=== PATIENT | female | born 1935 | race Caucasian/White ===

== ENCOUNTER 2023-09-03 11:51 | Inpatient (IN) | payer OTHER, MEDICAID ==
[2023-09-03 13:13] LABS: Actual Bicarbonate (HCO3v) 28.5 mEq/L (22-28); Base Excess 4.5 mEq/L (-2 - +2); Calcium, Ionized (venous) 1.56 mmol/L (1.16-1.32); Chloride (VBG) 101 mmol/L (98-106); Hematocrit-VBG 46 % (36.0-47.0); Hemoglobin (Hb) 15.6 g/dL (11.7-16.1); Potassium (VBG) 3.94 mmol/L (3.70-5.30); Puncture Site Other Site; Sodium 138 mmol/L (133-146); pH (venous) 7.471 (7.32-7.43)
[2023-09-03 13:18] LABS: Bilirubin Neg (Negative); Blood, Urine 250 (Negative); Clarity Slightly Cloudy (Clear); Glucose, Urine (Dipstick) Normal (Negative); Ketone, Urine Negative (Negative); Leukocyte 100 (Negative); Nitrite Negative (Negative); Protein, Urine (Dipstick) 30 mg/dl (Neg-Trace); Urobilinogen Normal mg/dL (Less than 2)
[2023-09-03 13:21] LABS: #Eosinphils 0.1 10x3/uL (0.0-0.5); #Monocytes 0.6 10x3/uL (0.0-1.1); #Neutrophils 5.6 10x3/uL (1.5-8.4); %Basophils 0.2 % (0.0-2.0); %Eosinophils 0.6 % (0.0-6.0); %Lymphocytes 22.5 % (18.0-47.0); Hemoglobin 14.6 g/dL (12.0-15.5); Mean Corpuscular Hemoglobin 30.7 pg (27.0-33.0); Mean Corpuscular Volume 90.3 fl (81.6-98.3); RBC Distribution Width 14.1 % (11.5-14.5); Red Blood Cell (RBC) Count 4.76 10x6/uL (3.90-5.03); White Blood Cell (WBC) Count 8.1 10x3/uL (3.5-10.5)
[2023-09-03 13:27] LABS: Platelet Count 192 10x3/uL (150-450)
[2023-09-03 13:29] LABS: ALT (SGPT) 70 U/L (8-55); AST (SGOT) 29 U/L (5-34); Alkaline Phosphatase 119 U/L (40-110); Anion Gap 16 mmol/L (10-20); BUN (Urea Nitrogen) 13 mg/dL (9.8-20.1); Bilirubin, Total 1.3 mg/dL (0.2-1.2); Calc. Creatinine Clearance 0 mL/min (70-130); Carbon Dioxide 26 mmol/L (23-31); Chloride 100 mmol/L (98-107); Estimated GFR 73; Globulin 2.4 g/dL (2.4-3.5); Glucose 163 mg/dL (83-110); Lipase 33 U/L (8-78); Protein, Total 6.4 g/dL (5.8-8.1); Sodium 138 mmol/L (136-145)
[2023-09-03 13:31] LABS: Calcium 13.8 mg/dL (7.8-10.44)
[2023-09-03 13:35] LABS: Troponin I 0.288 ng/mL (< 0.028)
[2023-09-03 13:41] LABS: Bacteria/HPF 2+ HPF (None Seen); CAUTI Indications for Culture Alt mental st,lethar; Calcium Oxalate Crystals 1+ HPF (None Seen); Squamous Epithelial 0-3 HPF (0-3)
[2023-09-03 13:44] LABS: Urine Culture Reflex No No
[2023-09-03] MEDS ORDERED: Ondansetron PF 4 MG/2 ML Vial IVP PRN (13:57)
[2023-09-03] MEDS ORDERED: Acetaminophen 325 MG TAB PO PRN (13:57)
[2023-09-03] MEDS ORDERED: cefTRIAXone (ROCEPHIN) 1 GM VIAL ONE (13:59)
[2023-09-03] MEDS ORDERED: Sodium Chloride 0.9% 500 ML IV SCH ×3 (14:00→15:30)
[2023-09-03] MEDS ORDERED: Metoprolol Tartrate 25 MG TAB PO PRN (14:01)
[2023-09-03 15:39] VITALS: BMI 22.4
[2023-09-03] MEDS: Sodium Chloride 0.9% 1,000 ML IV SCH (15:43)
[2023-09-03] MEDS ORDERED: FLU VACC QS2023(65UP)/MF59C/PF 60 MCG/0.5 ML SYRINGE IM ONE (16:00)
[2023-09-03 17:25] LABS: Troponin I 0.269 ng/mL (< 0.028)
[2023-09-03 20:22] LABS: Troponin I 0.286 ng/mL (< 0.028)
[2023-09-03] MEDS: levETIRAcetam 500 MG TAB PO SCH (20:59)
[2023-09-03] MEDS: Atorvastatin Calcium 40 MG TAB PO SCH (20:59)
[2023-09-04] MEDS: Sodium Chloride 0.9% 1,000 ML IV SCH (01:17)
[2023-09-04] MEDS ORDERED: Lorazepam 2 MG/ML VIAL SLOW IVP SCH (04:15)
[2023-09-04 06:19] LABS: #Monocytes 0.7 10x3/uL (0.0-1.1); #Neutrophils 5.1 10x3/uL (1.5-8.4); %Basophils 0.1 % (0.0-2.0); %Eosinophils 0.4 % (0.0-6.0); %Lymphocytes 18.9 % (18.0-47.0); %Monocytes 9.1 % (0.0-10.0); %Neutrophils 70.9 % (40.0-75.0); Hematocrit 37.5 % (34.9-44.5); Hemoglobin 12.6 g/dL (12.0-15.5); Mean Corpuscular HGB CONC 33.6 g/dL (32.0-36.0); Mean Corpuscular Hemoglobin 30.1 pg (27.0-33.0); Mean Corpuscular Volume 89.5 fl (81.6-98.3); Mean Platelet Volume 13.5 fl (7.4-10.4); Platelet Count 190 10x3/uL (150-450); RBC Distribution Width 13.9 % (11.5-14.5); Red Blood Cell (RBC) Count 4.19 10x6/uL (3.90-5.03); White Blood Cell (WBC) Count 7.2 10x3/uL (3.5-10.5)
[2023-09-04 06:22] LABS: Anion Gap 14 mmol/L (10-20); BUN (Urea Nitrogen) 12 mg/dL (9.8-20.1); Calc. Creatinine Clearance 42 mL/min (70-130); Carbon Dioxide 24 mmol/L (23-31); Chloride 111 mmol/L (98-107); Estimated GFR 59; Glucose 145 mg/dL (83-110); Potassium 3.1 mmol/L (3.5-5.1); Sodium 146 mmol/L (136-145)
[2023-09-04] MEDS ORDERED: Potassium Chloride 20 MEQ in Premix 1 BAG IVPB SCH (09:00)
[2023-09-04 09:49] LABS: Magnesium 1.8 mg/dL (1.6-2.6)
[2023-09-04] MEDS: Aspirin 81 mg Enteric Coated Tablet PO SCH ×2 (10:03→10:25)
[2023-09-04] MEDS: levETIRAcetam 500 MG TAB PO SCH ×3 (10:04→22:05)
[2023-09-04] MEDS: Potassium Chloride 20 MEQ in Lactated Ringer's 1,000 ML IV SCH ×2 (11:37→22:03)
[2023-09-04] MEDS ORDERED: Magnesium 2 GM/50 ML(in water) 2 GM in Premix 1 BAG IVPB SCH (14:00)
[2023-09-04 15:08] LABS: Reference Lab Name LABCORP
[2023-09-04] MEDS: Atorvastatin Calcium 40 MG TAB PO SCH (22:05)
[2023-09-04] MEDS: hydrALAZINE 20 MG/ML VIAL SLOW IVP PRN (22:14)
[2023-09-04] MEDS ORDERED: dilTIAZem 25 MG/5 ML VIAL SLOW IVP SCH (22:30)
[2023-09-05 05:12] LABS: #Neutrophils 8.6 10x3/uL (1.5-8.4); %Basophils 0.4 % (0.0-2.0); %Eosinophils 0.1 % (0.0-6.0); %Lymphocytes 10.7 % (18.0-47.0); %Monocytes 9.6 % (0.0-10.0); %Neutrophils 78.7 % (40.0-75.0); Hematocrit 39.5 % (34.9-44.5); Mean Corpuscular HGB CONC 32.9 g/dL (32.0-36.0); Mean Corpuscular Hemoglobin 29.9 pg (27.0-33.0); Mean Corpuscular Volume 90.8 fl (81.6-98.3); Mean Platelet Volume 12.9 fl (7.4-10.4); Platelet Count 152 10x3/uL (150-450); RBC Distribution Width 14.3 % (11.5-14.5); Red Blood Cell (RBC) Count 4.35 10x6/uL (3.90-5.03); White Blood Cell (WBC) Count 10.9 10x3/uL (3.5-10.5)
[2023-09-05 05:29] LABS: Anion Gap 12 mmol/L (10-20); BUN (Urea Nitrogen) 13 mg/dL (9.8-20.1); Calc. Creatinine Clearance 41 mL/min (70-130); Carbon Dioxide 25 mmol/L (23-31); Chloride 114 mmol/L (98-107); Estimated GFR 57; Glucose 139 mg/dL (83-110); Potassium 3.3 mmol/L (3.5-5.1); Sodium 148 mmol/L (136-145)
[2023-09-05] MEDS: Potassium Chloride 20 MEQ in Lactated Ringer's 1,000 ML IV SCH ×2 (06:05→18:34)
[2023-09-05] MEDS ORDERED: Calcitonin,Salmon,Synthetic 400 UNITS/2 ML SC SCH (06:15)
[2023-09-05] MEDS ORDERED: ADMIXTURE FEE SC SCH (06:30)
[2023-09-05] MEDS ORDERED: CALCITONIN SALMON SYNTHETIC SC SCH (06:30)
[2023-09-05] MEDS ORDERED: Zoledronic Acid 4 MG in Sodium Chloride 0.9% 100 ML IVPB SCH (08:00)
[2023-09-05] MEDS ORDERED: Carvedilol 6.25 MG TAB PO SCH (08:30)
[2023-09-05] MEDS: hydrALAZINE 20 MG/ML VIAL SLOW IVP PRN (08:34)
[2023-09-05] MEDS: levETIRAcetam 500 MG TAB PO SCH ×2 (08:40→22:00)
[2023-09-05] MEDS: Aspirin 81 mg Enteric Coated Tablet PO SCH (08:40)
[2023-09-05 08:52] LABS: Magnesium 2.2 mg/dL (1.6-2.6)
[2023-09-05] MEDS: Potassium Chloride 20 MEQ in Premix 1 BAG IVPB SCH ×2 (09:00→10:00)
[2023-09-05] MEDS ORDERED: Cinacalcet HCl 30 MG TAB PO SCH (09:15)
[2023-09-05 13:34] LABS: Anion Gap 11 mmol/L (10-20); BUN (Urea Nitrogen) 15 mg/dL (9.8-20.1); Calc. Creatinine Clearance 36 mL/min (70-130); Carbon Dioxide 27 mmol/L (23-31); Chloride 114 mmol/L (98-107); Estimated GFR 49; Glucose 181 mg/dL (83-110); Sodium 149 mmol/L (136-145)
[2023-09-05 13:45] LABS: Calcium 14.3 mg/dL (7.8-10.44)
[2023-09-05] MEDS ORDERED: Potassium Chloride 20 MEQ in Premix 1 BAG IVPB SCH (16:00)
[2023-09-05] MEDS: D5 1/2 NS w/20 mEq KCL 1,000 ML IV SCH ×2 (16:28→22:03)
[2023-09-05] MEDS: Cinacalcet HCl 30 MG TAB PO SCH (16:29)
[2023-09-05] MEDS: Carvedilol 6.25 MG TAB PO SCH (18:33)
[2023-09-05] MEDS: Atorvastatin Calcium 40 MG TAB PO SCH (22:00)
[2023-09-06 05:01] LABS: Anion Gap 13 mmol/L (10-20); BUN (Urea Nitrogen) 21 mg/dL (9.8-20.1); Calc. Creatinine Clearance 28 mL/min (70-130); Carbon Dioxide 21 mmol/L (23-31); Chloride 118 mmol/L (98-107); Estimated GFR 36; Glucose 183 mg/dL (83-110); Potassium 3.2 mmol/L (3.5-5.1); Sodium 149 mmol/L (136-145)
[2023-09-06 05:06] LABS: #Monocytes 0.9 10x3/uL (0.0-1.1); #Neutrophils 9.1 10x3/uL (1.5-8.4); %Basophils 0.2 % (0.0-2.0); %Eosinophils 0.1 % (0.0-6.0); %Lymphocytes 7.8 % (18.0-47.0); %Monocytes 8.5 % (0.0-10.0); %Neutrophils 82.9 % (40.0-75.0); Calcium 13.7 mg/dL (7.8-10.44); Hematocrit 35.2 % (34.9-44.5); Hemoglobin 11.9 g/dL (12.0-15.5); Mean Corpuscular HGB CONC 33.8 g/dL (32.0-36.0); Mean Corpuscular Hemoglobin 30.5 pg (27.0-33.0); Mean Corpuscular Volume 90.3 fl (81.6-98.3); Mean Platelet Volume 13.9 fl (7.4-10.4); Platelet Count 172 10x3/uL (150-450); RBC Distribution Width 14.6 % (11.5-14.5)
[2023-09-06] MEDS: levETIRAcetam 500 MG TAB PO SCH ×2 (08:27→21:11)
[2023-09-06] MEDS: Carvedilol 6.25 MG TAB PO SCH ×3 (08:27→18:09)
[2023-09-06] MEDS: Aspirin 81 mg Enteric Coated Tablet PO SCH (08:27)
[2023-09-06] MEDS: Cinacalcet HCl 30 MG TAB PO SCH ×2 (08:31→17:49)
[2023-09-06] MEDS: Dextrose 5% w/ 20 mEq KCl 1,000 ML IV SCH ×2 (09:58→21:10)
[2023-09-06] MEDS: hydrALAZINE 20 MG/ML VIAL SLOW IVP PRN (13:45)
[2023-09-06] MEDS: Atorvastatin Calcium 40 MG TAB PO SCH (21:11)
[2023-09-07 03:59] LABS: #Monocytes 0.8 10x3/uL (0.0-1.1); %Basophils 0.1 % (0.0-2.0); %Eosinophils 0.3 % (0.0-6.0); %Lymphocytes 13.7 % (18.0-47.0); %Monocytes 8.5 % (0.0-10.0); %Neutrophils 77.2 % (40.0-75.0); Hematocrit 32.6 % (34.9-44.5); Hemoglobin 10.9 g/dL (12.0-15.5); Mean Corpuscular HGB CONC 33.4 g/dL (32.0-36.0); Mean Corpuscular Hemoglobin 30.4 pg (27.0-33.0); Mean Corpuscular Volume 91.1 fl (81.6-98.3); Mean Platelet Volume 13.5 fl (7.4-10.4); Platelet Count 153 10x3/uL (150-450); RBC Distribution Width 14.7 % (11.5-14.5); Red Blood Cell (RBC) Count 3.58 10x6/uL (3.90-5.03); White Blood Cell (WBC) Count 9.1 10x3/uL (3.5-10.5)
[2023-09-07 04:02] LABS: Anion Gap 11 mmol/L (10-20); BUN (Urea Nitrogen) 24 mg/dL (9.8-20.1); Calc. Creatinine Clearance 31 mL/min (70-130); Calcium 12.4 mg/dL (7.8-10.44); Carbon Dioxide 21 mmol/L (23-31); Chloride 114 mmol/L (98-107); Estimated GFR 40; Glucose 161 mg/dL (83-110); Potassium 3.1 mmol/L (3.5-5.1); Sodium 143 mmol/L (136-145)
[2023-09-07] MEDS: Cinacalcet HCl 30 MG TAB PO SCH ×2 (08:35→18:05)
[2023-09-07] MEDS: Carvedilol 6.25 MG TAB PO SCH ×2 (08:35→18:04)
[2023-09-07] MEDS: levETIRAcetam 500 MG TAB PO SCH ×2 (08:35→20:18)
[2023-09-07] MEDS: Aspirin 81 mg Enteric Coated Tablet PO SCH ×2 (08:35→08:36)
[2023-09-07] MEDS ORDERED: Potassium Chloride 20 MEQ/100 ML PREMIX BAG ONE (09:42)
[2023-09-07] MEDS: Potassium Chloride 20 MEQ in Premix 1 BAG IVPB SCH ×2 (10:04→12:15)
[2023-09-07] MEDS: Dextrose 5% w/ 20 mEq KCl 1,000 ML IV SCH ×2 (10:05→23:56)
[2023-09-07] MEDS: Atorvastatin Calcium 40 MG TAB PO SCH (20:19)
[2023-09-08 03:47] LABS: Anion Gap 10 mmol/L (10-20); BUN (Urea Nitrogen) 22 mg/dL (9.8-20.1); Calc. Creatinine Clearance 36 mL/min (70-130); Calcium 11.7 mg/dL (7.8-10.44); Carbon Dioxide 19 mmol/L (23-31); Chloride 111 mmol/L (98-107); Estimated GFR 49; Glucose 179 mg/dL (83-110); Potassium 3.5 mmol/L (3.5-5.1); Sodium 136 mmol/L (136-145)
[2023-09-08 03:53] LABS: #Eosinphils 0.1 10x3/uL (0.0-0.5); #Monocytes 0.7 10x3/uL (0.0-1.1); #Neutrophils 5.4 10x3/uL (1.5-8.4); %Basophils 0.1 % (0.0-2.0); %Monocytes 8.8 % (0.0-10.0); %Neutrophils 73.7 % (40.0-75.0); Hematocrit 32.5 % (34.9-44.5); Hemoglobin 10.8 g/dL (12.0-15.5); Mean Corpuscular HGB CONC 33.2 g/dL (32.0-36.0); Mean Corpuscular Hemoglobin 30.5 pg (27.0-33.0); Mean Corpuscular Volume 91.8 fl (81.6-98.3); Mean Platelet Volume 13.7 fl (7.4-10.4); Platelet Count 150 10x3/uL (150-450); RBC Distribution Width 14.6 % (11.5-14.5); Red Blood Cell (RBC) Count 3.54 10x6/uL (3.90-5.03); White Blood Cell (WBC) Count 7.4 10x3/uL (3.5-10.5)
[2023-09-08] MEDS: Carvedilol 6.25 MG TAB PO SCH (08:00)
[2023-09-08] MEDS: levETIRAcetam 500 MG TAB PO SCH (09:01)
[2023-09-08] MEDS: Aspirin 81 mg Enteric Coated Tablet PO SCH (09:01)
[2023-09-08] MEDS: Cinacalcet HCl 30 MG TAB PO SCH (09:02)
[2023-09-08 13:21] VITALS: BP 182/80; TEMP 97.4
== END 2023-09-08 11:20 | DRG 640 ==
LOC: CSHERS 11:51 → CSHTELE 13:54
PROVIDERS: ADMIT Internal Medicine; ATTEND Internal Medicine
PROC: 0T9B70Z Drainage of Bladder with Drainage Device, Via Natural or Artificial Opening (ICD-10-PCS; principal; 2023-09-03)
PROC: 4A043R1 Measurement of Venous Saturation, Peripheral, Percutaneous Approach (ICD-10-PCS; 2023-09-03)
DX: E83.52 Hypercalcemia (principal); G93.41 Metabolic encephalopathy; I21.A1 Myocardial infarction type 2; N39.0 Urinary tract infection, site not specified; E21.3 Hyperparathyroidism, unspecified; Z79.82 Long term (current) use of aspirin; Z66 Do not resuscitate; Z79.899 Other long term (current) drug therapy; E11.9 Type 2 diabetes mellitus without complications; I10 Essential (primary) hypertension; Z90.49 Acquired absence of other specified parts of digestive tract; Z90.710 Acquired absence of both cervix and uterus; Z98.890 Other specified postprocedural states; Z88.0 Allergy status to penicillin; Z79.4 Long term (current) use of insulin; E83.42 Hypomagnesemia; E78.5 Hyperlipidemia, unspecified; K21.9 Gastro-esophageal reflux disease without esophagitis; G40.909 Epilepsy, unspecified, not intractable, without status epilepticus; E87.6 Hypokalemia; T50.2X5A Adverse effect of carbonic-anhydrase inhibitors, benzothiadiazides and other diuretics, initial encounter; T50.3X5A Adverse effect of electrolytic, caloric and water-balance agents, initial encounter; I25.10 Atherosclerotic heart disease of native coronary artery without angina pectoris
CPT/HCPCS: 36415; 36416; 70450; 71045; 80048; 80053; 81001; 82140; 82306; 82805; 83605; 83690; 83735; 83970; 84484; 85025; 87086; 93005; 94760; 94762; 96361; 96365; 96372; J0360; J0630; J0696; J1650; J2060; J3475; J3480; J3489; J3490; J7030; J7050; J7120

== ENCOUNTER 2023-10-06 10:03 | Emergency (ER) | payer OTHER, MEDICAID ==
[2023-10-06] MEDS ORDERED: Ibuprofen 200 MG TAB ONE (10:51)
== END 2023-10-06 12:20 | disposition home or self-care (01) ==
LOC: CSHERS 10:03
DX: T14.8XXA Other injury of unspecified body region, initial encounter (principal); M54.50 Low back pain, unspecified; M25.551 Pain in right hip; M25.531 Pain in right wrist; I10 Essential (primary) hypertension; E11.9 Type 2 diabetes mellitus without complications; M81.0 Age-related osteoporosis without current pathological fracture; W01.0XXA Fall on same level from slipping, tripping and stumbling without subsequent striking against object, initial encounter; Y92.89 Other specified places as the place of occurrence of the external cause
CPT/HCPCS: 71045; 72100